=== PATIENT | female | born 1990 | race Caucasian/White ===

== ENCOUNTER 2024-08-19 10:15 | Inpatient (IN) | payer MEDICARE, MEDICAID ==
[~2024-08-19] VITALS: Ht 162.6 cm; Wt 63.0 kg
[2024-08-19] MEDS: SODIUM CHLORIDE 0.9% (SEPSIS BOLUS) IV ONE (11:22)
[2024-08-19] MEDS: PIPERACILLIN/TAZO 3.375G/50ML 50 ML IV ONE (11:23)
[2024-08-19 12:17] LABS: BASOPHILS % 0.9 % (0.0-2.0); DIFFERENTIAL COMMENT 0; LYMPHOCYTES % 21.8 % (20.0-50.0); MEAN CORPUSCULAR HEMOGLOBIN 28.4 pg (28.0-32.0); MEAN CORPUSCULAR HGB CONC 28.6 g/dL (31.0-37.0); MEAN CORPUSCULAR VOLUME 99.3 fL (81.0-99.0); MEAN PLATELET VOLUME 9.7 fl (7.4-10.4); MONOCYTES % 5.3 % (2.0-8.0); PLATELET 92 x1000/uL (130-400); RED BLOOD CELL COUNT 1.94 mill/uL (4.2-5.4); RED CELL DISTRIBUTION WIDTH 19.1 % (11.6-14.6); WHITE BLOOD COUNT 3.5 x1000/uL (4.5-11.0)
[2024-08-19 12:28] LABS: POTASSIUM 2.9 mEq/L (3.5-5.1)
[2024-08-19 12:29] LABS: INR 1.4
[2024-08-19 12:34] LABS: HEMATOCRIT. 19.3 % (36.0-48.0); HEMOGLOBIN. 5.5 g/dL (12.0-16.0)
[2024-08-19 13:08] LABS: CREATININE 3.4 mg/dL (0.6-1.0)
[2024-08-19 13:23] LABS: LACTIC ACID 6.1 mmol/L (0.4-2.0)
[2024-08-19 13:26] LABS: CALCIUM 5.7 mg/dL (8.7-10.4)
[2024-08-19] MEDS: CALCIUM GLUCONATE 100MG/ML 10ML VIAL IV ONE (13:30)
[2024-08-19] MEDS: VANCOMYCIN 1G PREMIX 200 ML IV ONE (15:07)
[2024-08-19] MEDS: KCL 20MEQ/100ML PREMIX 100 ML IV SCH (15:56)
[2024-08-19] MEDS: DEXTROSE 50% WATER 50ML SYRINGE IV ONE (21:44)
[2024-08-19] MEDS: DIPHENHYDRAMINE 25MG CAPSULE PO NR (21:45)
[2024-08-19] MEDS: HYDROMORPHONE HCL/PF 1MG/ML INJ IV NR (21:45)
[2024-08-19 22:00] VITALS: BP 183/125; PULSE 72; RESP 20; TEMP 37.11408; O2SAT 97
[2024-08-19 23:38] VITALS: BP 154/101
[2024-08-19 23:44] VITALS: BP 154/101; PULSE 104; RESP 20; TEMP 37.1408
[2024-08-20] VITALS (7 sets, daily range): BP systolic 138–180; BP diastolic 80–114; PULSE 80–120; RESP 16–20; TEMP 36.3918–37.05852; O2SAT 92–100
[2024-08-20 03:28] LABS: CHLORIDE 108 mEq/L (98-107); SODIUM 136 mEq/L (136-145)
[2024-08-20 03:29] LABS: CALCIUM 7.6 mg/dL (8.7-10.4); CARBON DIOXIDE 20 mEq/L (21-32)
[2024-08-20 03:34] LABS: UREA NITROGEN BLOOD 33 mg/dL (9-23)
[2024-08-20 03:39] LABS: BASOPHILS % 1.4 % (0.0-2.0); EOSINOPHILS % 5.1 % (0.0-5.0); HEMATOCRIT. 33.4 % (36.0-48.0); HEMOGLOBIN. 10.3 g/dL (12.0-16.0); LYMPHOCYTES % 10.1 % (20.0-50.0); MEAN CORPUSCULAR HEMOGLOBIN 29.2 pg (28.0-32.0); MEAN CORPUSCULAR VOLUME 94.2 fL (81.0-99.0); MEAN PLATELET VOLUME 10.1 fl (7.4-10.4); MONOCYTES % 4.4 % (2.0-8.0); PLATELET 110 x1000/uL (130-400); RED BLOOD CELL COUNT 3.54 mill/uL (4.2-5.4); WHITE BLOOD COUNT 4.1 x1000/uL (4.5-11.0)
[2024-08-20 04:28] LABS: CREATININE 4.5 mg/dL (0.6-1.0)
[2024-08-20 04:30] LABS: GLUCOSE 42 mg/dL (70-105)
[2024-08-20] MEDS: DEXTROSE 50% WATER 50ML SYRINGE IV NR ×2 (05:18→12:00)
[2024-08-20] MEDS: PIPERACILLIN/TAZO 3.375G/50ML 50 ML IV SCH (11:17)
[2024-08-20] MEDS ORDERED: NALOXONE HCL 0.4MG/ML VIAL IV PRN (14:45)
[2024-08-20] MEDS ORDERED: HYDROCODONE/ACETAMINOPHEN 5/325MG TABLET PO PRN (14:45)
[2024-08-20 15:07] LABS: HCG SCREEN NEGATIVE
[2024-08-20 15:41] LABS: HEPATITIS B SURFACE ANTIGEN NEGATIVE (Negative)
[2024-08-20] MEDS: METOPROLOL TARTRATE 25MG TABLET PO SCH (15:56)
[2024-08-20] MEDS: PANTOPRAZOLE 40MG DR TABLET PO SCH (15:57)
[2024-08-20] MEDS: FOLIC ACID/VITAMIN B COMP W-C TABLET PO SCH (15:57)
[2024-08-20] MEDS: PREDNISONE 5MG TABLET PO SCH (15:58)
[2024-08-20] MEDS: HYDROCODONE/ACETAMINOPHEN 5/325MG TABLET PO PRN (15:59)
[2024-08-20 16:01] LABS: HEPATITIS A AB IGM NEGATIVE (Negative)
[2024-08-20 16:03] LABS: HEPATITIS B CORE AB IGM NEGATIVE (Negative); HEPATITIS C AB NON REACTIVE (Neg) (Negative)
[2024-08-20] MEDS: SUCRALFATE 1G TABLET PO SCH (16:58)
[2024-08-20] MEDS: HYDROXYCHLOROQUINE SULFATE 200MG TABLET PO SCH (16:58)
[2024-08-20] MEDS: BLOOD SUGAR DIAGNOSTIC STRIP TEST SCH (17:11)
[2024-08-20] MEDS: INSULIN LISPRO 100 UNITS/ML SUBCUT SCH (17:15)
[2024-08-20] MEDS: DEXTROSE 50% WATER 50ML SYRINGE IV PRN (17:50)
[2024-08-20] MEDS: CLONIDINE 0.1MG TABLET PO PRN (20:30)
[2024-08-20] MEDS: DOXYCYCLINE HYCLATE 100MG CAPSULE PO SCH (20:30)
[2024-08-20] MEDS: LACTOBACILLUS GG CAPSULE PO SCH (20:42)
[2024-08-20] MEDS: LORAZEPAM 2MG/ML INJ IV PRN (22:20)
[2024-08-21] VITALS (16 sets, daily range): BP systolic 101–154; BP diastolic 74–114; PULSE 65–83; RESP 17–33; TEMP 36.28068–36.89184; O2SAT 96–100
[2024-08-21] MEDS: EPOETIN ALFA-EPBX 4,000 UNIT/ML VIAL SUBCUT SCH
[2024-08-21] MEDS: SILDENAFIL CITRATE 20MG TABLET PO SCH (01:42)
[2024-08-21] MEDS: LEVETIRACETAM 500MG PREMIX 100 ML IV SCH (10:22)
[2024-08-21 12:54] LABS: CALCIUM 7.6 mg/dL (8.7-10.4); CARBON DIOXIDE 19 mEq/L (21-32); CHLORIDE 109 mEq/L (98-107); POTASSIUM 5.5 mEq/L (3.5-5.1); SODIUM 137 mEq/L (136-145)
[2024-08-21 12:59] LABS: GLUCOSE 82 mg/dL (70-105)
[2024-08-21 13:00] LABS: UREA NITROGEN BLOOD 40 mg/dL (9-23)
[2024-08-21 13:01] LABS: ALANINE AMINOTRANSFERASE 19 IU/L (10-49); ALBUMIN 2.5 g/dL (3.2-4.8); ASPARTATE AMINOTRANSFERASE 39 IU/L (<34)
[2024-08-21 13:02] LABS: BILIRUBIN TOTAL 0.2 mg/dL (0.1-1.0); PHOSPHORUS 5.1 mg/dL (2.5-4.9); PROTEIN TOTAL 6.8 g/dL (6.0-8.3)
[2024-08-21 13:08] LABS: BASOPHILS % 1.1 % (0.0-2.0); EOSINOPHILS % 2.9 % (0.0-5.0); LYMPHOCYTES % 11.7 % (20.0-50.0); MEAN CORPUSCULAR HEMOGLOBIN 30.6 pg (28.0-32.0); MEAN CORPUSCULAR HGB CONC 31.7 g/dL (31.0-37.0); MEAN CORPUSCULAR VOLUME 96.5 fL (81.0-99.0); MEAN PLATELET VOLUME 10.1 fl (7.4-10.4); MONOCYTES % 5.4 % (2.0-8.0); NEUTROPHILS % 78.9 % (40.0-76.0); PLATELET 97 x1000/uL (130-400); RED BLOOD CELL COUNT 2.85 mill/uL (4.2-5.4); RED CELL DISTRIBUTION WIDTH 18.9 % (11.6-14.6); WHITE BLOOD COUNT 3.8 x1000/uL (4.5-11.0)
[2024-08-21 13:30] LABS: HEMATOCRIT. 27.5 % (36.0-48.0); HEMOGLOBIN. 8.7 g/dL (12.0-16.0)
[2024-08-21] MEDS: PIPERACILLIN/TAZO 3.375G/100ML 100 ML IV SCH (20:56)
[2024-08-22] VITALS (10 sets, daily range): BP systolic 111–134; BP diastolic 76–93; PULSE 73–87; RESP 15–27; TEMP 36.61404–36.6696; O2SAT 92–97
[2024-08-22] MEDS: DIPHENHYDRAMINE 25MG CAPSULE PO PRN (00:28)
[2024-08-22] MEDS: VANCOMYCIN 500MG PREMIX 100 ML IV SCH (03:30)
[2024-08-22 10:10] LABS: BASOPHILS % 0.8 % (0.0-2.0); EOSINOPHILS % 7.2 % (0.0-5.0); HEMOGLOBIN. 8.9 g/dL (12.0-16.0); LYMPHOCYTES % 13.3 % (20.0-50.0); MEAN CORPUSCULAR HEMOGLOBIN 29.2 pg (28.0-32.0); MEAN CORPUSCULAR HGB CONC 30.7 g/dL (31.0-37.0); MEAN CORPUSCULAR VOLUME 95.1 fL (81.0-99.0); MEAN PLATELET VOLUME 10.7 fl (7.4-10.4); MONOCYTES % 4.4 % (2.0-8.0); NEUTROPHILS % 74.3 % (40.0-76.0); PLATELET 135 x1000/uL (130-400); RED BLOOD CELL COUNT 3.05 mill/uL (4.2-5.4); RED CELL DISTRIBUTION WIDTH 18.8 % (11.6-14.6); WHITE BLOOD COUNT 4.2 x1000/uL (4.5-11.0)
[2024-08-22 10:15] LABS: CHLORIDE 101 mEq/L (98-107); POTASSIUM 4.5 mEq/L (3.5-5.1); SODIUM 135 mEq/L (136-145)
[2024-08-22 10:16] LABS: CALCIUM 7.8 mg/dL (8.7-10.4); CARBON DIOXIDE 23 mEq/L (21-32)
[2024-08-22 10:21] LABS: CREATININE 4.3 mg/dL (0.6-1.0); GLUCOSE 59 mg/dL (70-105); UREA NITROGEN BLOOD 23 mg/dL (9-23)
[2024-08-22 10:23] LABS: PHOSPHORUS 3.2 mg/dL (2.5-4.9)
[2024-08-22] MEDS ORDERED: AMOX1TAB15 MT (12:01)
[2024-08-22] MEDS ORDERED: LEVETIRACETAM 500MG TABLET PO SCH (21:00)
[2024-08-23] MEDS ORDERED: LEVOFLOXACIN 250MG TABLET PO SCH (11:00)
== END 2024-08-22 18:05 | disposition home health service (06) | DRG 871 ==
LOC: ER 10:32 → 5WST 14:16 → EDBEDREQ 14:19 → 5EST 08-20 23:15
PROVIDERS: ADMIT Internal Medicine; ATTEND Internal Medicine
PROC: 30233N1 Transfusion of Nonautologous Red Blood Cells into Peripheral Vein, Percutaneous Approach (ICD-10-PCS; principal; 2024-08-19)
PROC: 5A1D70Z Performance of Urinary Filtration, Intermittent, Less than 6 Hours Per Day (ICD-10-PCS; 2024-08-21)
DX: A41.9 Sepsis, unspecified organism (principal); J69.0 Pneumonitis due to inhalation of food and vomit; N18.6 End stage renal disease; R65.21 Severe sepsis with septic shock; D68.9 Coagulation defect, unspecified; D61.818 Other pancytopenia; I12.0 Hypertensive chronic kidney disease with stage 5 chronic kidney disease or end stage renal disease; D53.9 Nutritional anemia, unspecified; E11.22 Type 2 diabetes mellitus with diabetic chronic kidney disease; Z20.822 Contact with and (suspected) exposure to COVID-19; E11.649 Type 2 diabetes mellitus with hypoglycemia without coma; E83.42 Hypomagnesemia; E78.5 Hyperlipidemia, unspecified; E87.6 Hypokalemia; R56.9 Unspecified convulsions; M32.9 Systemic lupus erythematosus, unspecified; S81.812A Laceration without foreign body, left lower leg, initial encounter; S81.811A Laceration without foreign body, right lower leg, initial encounter; E11.51 Type 2 diabetes mellitus with diabetic peripheral angiopathy without gangrene; E11.40 Type 2 diabetes mellitus with diabetic neuropathy, unspecified; S61.200A Unspecified open wound of right index finger without damage to nail, initial encounter; Z79.84 Long term (current) use of oral hypoglycemic drugs; Z88.1 Allergy status to other antibiotic agents; Z99.2 Dependence on renal dialysis; Z89.429 Acquired absence of other toe(s), unspecified side; Z82.49 Family history of ischemic heart disease and other diseases of the circulatory system; X58.XXXA Exposure to other specified factors, initial encounter; Y93.89 Activity, other specified; Y92.89 Other specified places as the place of occurrence of the external cause; Y99.8 Other external cause status
CPT/HCPCS: 36415; 71045; 71250; 80048; 80053; 80202; 82962; 83036; 83605; 83735; 84100; 84145; 84703; 85025; 86705; 86709; 86850; 86900; 86920; 87340; 87426; 87804; 90935; 93005; 99291; A4606; J0610; J1171; J1953; J2060; J2543; J3370; J3480; J7030; J7512; P9016; Q0163